=== PATIENT | female | born 1970 | race Caucasian/White ===

== ENCOUNTER → 2018-05-07 | Outpatient (CLI) | payer BC ==
[~2018-05-07] MED LIST: NO MEDS; PRE20 PO
[2018-05-07 12:15] LABS: PLATELET COUNT, AUTOMATED 226 K/uL (150-450)
--- NOTE | 2018-05-07 15:11 | RADIOLOGY IMAGING REPORT ---
FACILITY: [facility] [place] PATIENT NAME: Johnny Telles : 1970 MR: [id number] V: [id number] EXAM DATE: ORDERING PHYSICIAN: VERÓNICA PERRY TECHNOLOGIST: Location: [facility] [place] Patient: Johnny Telles : 1970 Visit/Account:[id number] Date of Sevice: 05/07/2018 ABDOMEN/PELVIS W/O CONTRAST HISTORY: Left flank pain TECHNIQUE: Axial images acquired through the abdomen/pelvis. Coronal and sagittal reformatting also performed. No IV contrast administered.Dose Lowering Technique One of the following dose optimization techniques was utilized in the performance of this exam: Autom ated exposure control; adjustment of the mA and/or kV according to the patient's size; or use of an i terative reconstruction technique. Specific details can be referenced in the facility's radiology C T exam operational policy. COMPARISON: None. FINDINGS: Visualized lung bases: Negative. Hepatobiliary: Negative. Spleen: Negative Adrenals: Negative. Pancreas: Pancreas appears grossly unremarkable however the pancreatic head is not ideally evaluated due to a paucity of internal fat planes Kidneys ureters and bladder: There is no demonstration of urolithiasis hydronephrosis or hydroureter There is a an ovoid hyperdense mass in the anterior mid right kidney measuring 9 mm in diameter. Genitalia: Negative. GI: There is a large amount of fecal material seen throughout colon which can be seen with constipat ion. Vessels/spaces/nodes: Negative. Bones/soft tissues: Negative. Additional findings: None pertinent. IMPRESSION: Study is slightly limited due to a paucity of internal fat planes. There is no demonstration of urolithiasis, hydronephrosis or hydroureter. There is a 9 mm ovoid hyperdense mass in the anterior mid right kidney. This could represent calcifi cation within a mass or possibly hemorrhage. This could be further evaluated with a follow-up CT of the kidneys with and without contrast, or follow-up MR of the kidneys with and without contrast There is a large amount of fecal material throughout colon which can be seen with constipation Report Dictated By: Alicia Lamb MD at 05/07/2018 2:43 PM Report E-Signed By: Alicia Lamb MD at 05/07/2018 3:08 PM WSN:[email or web address]
== END ==
LOC: CT 10:50
PROVIDERS: ATTEND Nurse Practitioner Family
DX: K59.00 Constipation, unspecified (principal); N20.0 Calculus of kidney
CPT/HCPCS: 36415; 74176; 82040; 82150; 82247; 82310; 82374; 82435; 82565; 82947; 83690; 84075; 84132; 84155; 84295; 84450; 84460; 84520; 85025

== ENCOUNTER → 2018-05-20 | Outpatient (CLI) | payer BC ==
[~2018-05-20] MED LIST changes: +GADOBENATE 529MG/1ML 15ML VIAL IVP ONE; +NS(*) 0.9% 50 ML BAG 50 ML ONE
--- NOTE | 2018-05-20 10:43 | RADIOLOGY IMAGING REPORT ---
FACILITY: [facility] PATIENT NAME: Johnny Telles : 1970 MR: [id number] V: [id number] EXAM DATE: ORDERING PHYSICIAN: VERÓNICA PERRY TECHNOLOGIST: Location: [facility] [place] Patient: Johnny Telles : 1970 Visit/Account:[id number] Date of Sevice: 05/20/2018 ABDOMEN W W/O CONTRAST HISTORY: Hyperdense right renal mass ADDITIONAL HISTORY: None. TECHNIQUE: TECHNIQUE: Multiplanar multisequence magnetic resonance imaging of the abdomen with and without intravenous contrast. CONTRAST: 15 mL of MultiHance COMPARISON: CT abdomen pelvis May 07, 2018 FINDINGS: Visualized lung bases: Grossly unremarkable. Liver: There are several tiny cysts within the liver Gallbladder: Negative. Bile ducts: Nondistended and unremarkable. Spleen: Negative. Adrenal glands: Negative. Pancreas: Negative. Kidneys: There is a 9 mm round lesion in the anterior mid pole right kidney demonstrates increased T1 signal intensity decreased T2 signal intensity with no contrast enhancement. Vessels/spaces/nodes: No bulky adenopathy or ascities. Visualized GI: There is moderate gaseous distention of the loop of bowel in the upper pelvis may repr esent gas-filled sigmoid colon. A large amount of fecal material seen throughout the colon consisten t with constipation Bones/soft tissues: Unremarkable. IMPRESSION: There is a 9 mm round lesion in the anterior midpole the right kidney likely representing a hemorrhag ic or proteinaceous cyst. Moderate gaseous distention of the loop of bowel in the upper pelvis may represent gas-filled sigmoid colon. There is a large amount of fecal material throughout the colon consistent with constipation. Report Dictated By: Alicia Lamb MD at 05/20/2018 9:34 AM Report E-Signed By: Alicia Lamb MD at 05/20/2018 10:38 AM WSN:[email or web address]
== END ==
LOC: MRI 01:10
PROVIDERS: ATTEND Nurse Practitioner Family
DX: N28.89 Other specified disorders of kidney and ureter (principal)
CPT/HCPCS: 74183; A9577; J7050